=== PATIENT | female | born 1975 | race Caucasian/White ===

== ENCOUNTER → 2019-12-21 | Outpatient (CLI) | payer OTHER ==
[~2019-12-21] MED LIST: MECLIZINE HCL25 M1 PO; OMEPRAZOLE40 MG PO; OXYCODONE HCL 55 MG PO; VITAMIN C1000 MG PO; VITAMIN D325 MC1 PO
== END ==
LOC: M.LAB 17:00
PROVIDERS: ATTEND Surgery
DX: Z01.818 Encounter for other preprocedural examination (principal); Z11.59 Encounter for screening for other viral diseases; K80.20 Calculus of gallbladder without cholecystitis without obstruction

== ENCOUNTER → 2019-12-24 | Day surgery (SDC) | payer OTHER ==
[2019-12-24 12:35] LABS: HEMATOCRIT 37.2 % (37.0-47.0); HEMOGLOBIN 12.8 gm/dL (12.0-15.0)
--- NOTE | 2019-12-27 11:28 | OP ---
[address] [address] OPERATIVE REPORT Name: RIANALUCILA Paramjit Room: [facility].#: [id number] Admission: 12/24/19 Attend Phys: Sabi Sanchez DO Discharge: Date of : 75 Report #: [id number] THIS REPORT FOR: //name// cc: LIU Phillip family physician/PCP LIU - Marjan family physician/PCP ~ THIS REPORT FOR: //name// CC: Sabi Sanchez [facility] physician/PCP DICTATED BY: Bety Aviles DO DATE OF SERVICE: 12/24/2019 PREOPERATIVE DIAGNOSIS: Cholelithiasis with chronic cholecystitis without obstruction. POSTOPERATIVE DIAGNOSIS: Cholelithiasis with chronic cholecystitis without obstruction. PROCEDURE PERFORMED: Laparoscopic cholecystectomy. PRIMARY SURGEON: Sabi Sanchez DO NEMATOLOGY TEACHER: Bety Aviles DO, PGY2 SECOND CUP SETTER LOCKSTITCH: MS Manuel3. ANESTHESIA: General, local and TAP block. ESTIMATED BLOOD LOSS: 5 mL. SPECIMEN: Gallbladder. FINDINGS: Dense adhesions overlying the gallbladder; prior epigastric hernia repair with mesh in good position, one small adhesion to the mesh; right inguinal hernia repair with mesh and tacks evident, some scar tissue in this area. There is also a small left inguinal hernia noted. COMPLICATIONS: None. INDICATIONS FOR PROCEDURE: The patient is a very pleasant 44-year-old female that presented to our office with complaint of epigastric and right upper quadrant abdominal pain after meals for nearly 10 years now. She had an ultrasound performed, which showed sludge and small stones within the gallbladder. It was recommended [place] [address] OPERATIVE REPORT Name: LUCILA MAYERS Paramjit Room: [facility].#: [id number] Admission: 12/24/19 Attend Phys: Sabi Sanchez DO Discharge: Date of : 75 Report #: [id number] cholecystectomy. The procedure, risks, benefits, possible complications to include bleeding, infection, injury to surrounding structures, bile leak, injury to common bile duct, need for additional surgery, need for open procedure, risk of anesthesia, and other risks of surgery were discussed with the patient in great detail. She voiced complete understanding and wished to proceed with surgery. DESCRIPTION OF PROCEDURE: Informed consent was obtained. The patient was taken to the operating room and placed supine on the operating room table. General endotracheal anesthesia was induced without difficulty. SCDs were placed on bilateral lower extremities. Preoperative antibiotics were given. A TAP block was performed. The abdomen was prepped and draped in the standard sterile fashion. A timeout was performed to ensure correct patient and procedure. We began by making a vertical infraumbilical incision using a #11 blade scalpel. The incision was carried down through the subcutaneous tissue using electrocautery. S retractors were used to dissect further down to the level of the fascia. Fascia was grasped between 2 Kochers and elevated. Fascia was incised using Metzenbaum scissors. The peritoneum was grasped between 2 hemostats and elevated, this was also incised using Metzenbaum scissors. Finger was inserted and a sweep was performed to ensure there were no raffy incisional adhesions. The mesh from the previous epigastric hernia repair was palpable. The 0 Vicryl stay sutures were placed on either side of our fascial opening. A 12 mm Leah trocar was inserted and secured. Abdomen was insufflated without difficulty. Laparoscopic camera was inserted and a sweep of the anterior abdominal contents was performed. There was a small fatty adhesion to the previously placed mesh in the epigastric region. There was also evidence of a previous right inguinal hernia repair with mesh and tacks visible. There was also some scar tissue in this region. There was also a small left inguinal hernia that was noted on our sweep of the anterior abdominal contents. Three 5 mm trocars were then inserted under direct visualization, one in the subxiphoid region and two in the right upper quadrant. The gallbladder was grasped and elevated. The baking assistant grasped the fundus of the gallbladder and retracted it superiorly and anteriorly, there were some dense adhesions overlying the gallbladder. These were gently taken down using a combination of electrocautery and blunt dissection. Once these were completely taken down, Emily's pouch was grasped and retracted medially. The peritoneum overlying the gallbladder was scored using electrocautery. A combination of blunt dissection and electrocautery was used to open up the peritoneum along the lateral aspect of the gallbladder. The same technique was used to open up the peritoneum along the medial aspect of the gallbladder. The cystic artery was easily identified in the expected position just posterior to the cystic duct. The electrocautery was used to bluntly dissect a window posterior to the cystic duct. Additional tissue surrounding the cystic duct were bluntly dissected away using a small amount of electrocautery. Once this was completed, the same technique was used to dissect a window posterior to the cystic artery using the electrocautery tip. Any additional tissue surrounding the cystic artery [place] [address] OPERATIVE REPORT Name: LUCILA MAYERS Room: [facility]#: [id number] Admission: 12/24/19 Attend Phys: Sabi ApolloJovan Sanchez DO Discharge: Date of : 75 Report #: [id number] with a small amount of electrocautery as well. At this point, we had achieved our critical view of safety and only two structures were seen coursing into the gallbladder. The cystic plate was easily visible. A 5 mm clip stitcher feeder was used to place 2 clips proximally on the cystic artery and one clip distally. We also placed 2 clips proximally on the cystic duct and one clip distally. Laparoscopic scissors were used to transect both the cystic duct and the cystic artery. The gallbladder was then removed from the liver bed using electrocautery ensuring hemostasis along the way. Once the gallbladder was removed, it was placed within an EndoCatch bag. The liver edge was re-elevated and the liver bed was reinspected. It appeared to be hemostatic. Clips were reinspected. There did not appear to be any bleeding or bile leaking from either of our clips. The patient was then flattened out. The subxiphoid and right upper quadrant 5 mm trocars were removed under direct visualization. Abdomen was desufflated. The 12 mm Leah trocar was removed as well as the gallbladder within the EndoCatch bag. Fascia at the infraumbilical incision was grasped between 2 Kochers. Previously placed stay sutures were removed. Fascia was closed using 0 Vicryl suture in a [id number] fashion. The skin was closed using 4-0 Monocryl suture in a running subcuticular fashion. The 5 mm trocar sites were closed using 4-0 Monocryl suture in a simple interrupted and inverted fashion. Skin was cleansed and dried. Dermabond was applied to each incision. The patient tolerated the procedure very well. She was allowed to awaken in the operating room, transferred to the PACU in stable condition with plans to discharge home later today. <ELECTRONICALLY SIGNED> By: Sabi Sanchez DO 12/27/19 1128 [id number] 1513Cisael Sanchez DO /nt
--- NOTE | 2019-12-27 17:06 | PATH ---
[address] [address] PATHOLOGY RPT PROCEDURE Name: LUCILA MAYERS Room: [facility]#: [id number] Admission: 12/24/19 Date of : 75 Discharge: Report #: [id number] Path Case #: [id number] [facility] Accession Number: [id number] . 01 Material submitted: . gallbladder - GALLBLADDER AND CONTENTS . 01 Clinical history: . Gallbladder calculus. . 02 Diagnosis: Gallbladder and contents: - Chronic cholecystitis and cholelithiasis. (RACHELLE/db; 12/27/2019) LBQ 12/27/2019 1326 Local . 02 Electronically signed: . José Marroquin MD, Pathologist NPI- [id number] . 01 Gross description: . Received in formalin labeled "Lucila Mayers, gallbladder and contents" is an intact cholecystectomy specimen measuring 6.2 x 2.7 x 2.5 cm. The serosa is molina-green and smooth and the specimen is opened to reveal dark green velvety mucosa without polyps or masses. The average wall thickness is 0.2 cm. Numerous black gritty calculi are present within the gallbladder, measuring in aggregate 4.2 x 3.2 x 0.5 cm and ranging from 0.1-0.3 cm in greatest dimension. Pre Owned Sales Manager sections of the fundus and body and the cystic duct margin are submitted in A1. ([facility]; 12/26/2019) [facility] 12/26/2019 1121 Local . 02 Pathologist provided ICD-10: K80.10 . 02 CPT . 293240 Specimen Comment: A courtesy copy of this report has been sent to [phone] Specimen Comment: Report sent to Performed at: [address], [place] [id number] MD Juan William MD Phone: [phone] Performed at: 02 [facility] [address], [place], [place] [id number] MD José Marroquin MD Phone: [phone]
== END | disposition home or self-care (01) ==
LOC: M.SUR 05:22
PROVIDERS: ATTEND Surgery
DX: K80.10 Calculus of gallbladder with chronic cholecystitis without obstruction (principal); K40.20 Bilateral inguinal hernia, without obstruction or gangrene, not specified as recurrent; K21.9 Gastro-esophageal reflux disease without esophagitis; M06.9 Rheumatoid arthritis, unspecified; Z79.899 Other long term (current) drug therapy; Z98.890 Other specified postprocedural states